=== PATIENT | male | born 1990 | race African-American/Black ===

== ENCOUNTER 2017-03-27 19:28 | Emergency (ER) | payer OTHER ==
[2017-03-27 19:41] VITALS: BP 152/86
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
[2017-03-27] MEDS ORDERED: Diphtheria,Pertussis(Acell),Tetanus Vaccine 0.5 ML SDV IM ONE (20:10)
[2017-03-27] MEDS ORDERED: Ketorolac 30 MG/ML SDV IM ONE (20:11)
--- NOTE | 2017-03-28 08:41 | CR ---
Left tibia and fibula: Two views of the left tibia and fibula were obtained. Comparison: No previous study. No fracture or other abnormality is seen. Impression: 1. No abnormality is seen on two-view left tibia and fibula study. Diagnostic code #1
--- NOTE | 2017-03-28 08:41 | CR ---
Left ankle: Four views of left ankle were obtained. Comparison: No previous study. Mild soft tissue swelling is identified. Ankle mortise is symmetric. No fracture, dislocation or other bony abnormality is seen. Impression: 1. Soft tissue swelling. No bony abnormality is identified on left ankle exam. Diagnostic code #2
== END 2017-03-27 21:49 | disposition home or self-care (01) ==
LOC: JD.ED 19:28
DX: S39.012A Strain of muscle, fascia and tendon of lower back, initial encounter (principal); S40.022A Contusion of left upper arm, initial encounter; S40.812A Abrasion of left upper arm, initial encounter; S99.912A Unspecified injury of left ankle, initial encounter; Z87.891 Personal history of nicotine dependence; Z91.010 Allergy to peanuts; W17.89XA Other fall from one level to another, initial encounter; Z23 Encounter for immunization
CPT/HCPCS: 73590; 73610; 90471; 90715; 96372; 99284; J1885; 99283